=== PATIENT | male | born 1955 | race Hispanic/Latino ===

== ENCOUNTER 2024-03-15 11:32 | Emergency (ER) | payer MEDICARE ==
[2024-03-15 13:02] LABS: Bacteria/HPF None Seen HPF (None Seen); Bilirubin Negative (Negative); Blood, Urine Negative (Negative); CAUTI Indications for Culture Dysuria,urgency,freq; Clarity Clear (Clear); Glucose, Urine (Dipstick) Normal (Negative); Ketone, Urine Negative (Negative); Leukocyte Negative Leu/uL (Negative); Nitrite Negative (Negative); Protein, Urine (Dipstick) 30 mg/dL (Neg-Trace); RBC/HPF None Seen HPF (0-3); Specific Gravity, Urine 1.014 (1.002-1.036); Squamous Epithelial 0-3 HPF (0-3); Urobilinogen Normal mg/dL (Less than 2); WBC/HPF None Seen HPF (0-3)
[2024-03-15 13:04] LABS: Urine Culture Reflex No No
[2024-03-15 13:24] LABS: #Basophils 0.09 10x3/uL (0.0-0.2); %Basophils 0.9 % (0.0-1.0); %Lymphocytes 24.3 % (21.0-51.0); %Neutrophils 62.4 % (42.0-75.0); Hematocrit 48.5 % (42.0-52.0); Hemoglobin 16.9 g/dL (14.0-18.0); Mean Corpuscular HGB CONC 34.8 g/dL (32.0-36.0); Mean Corpuscular Hemoglobin 32.5 pg (27.0-31.0); Mean Corpuscular Volume 93.3 fL (78.0-98.0); Mean Platelet Volume 10.7 fL (7.4-10.4); Platelet Count 229 10x3/uL (130-400); RBC Distribution Width 12.1 % (11.5-14.5)
[2024-03-15 13:41] LABS: ALT (SGPT) 64 U/L (8-55); AST (SGOT) 68 U/L (5-34); Albumin 3.8 g/dL (3.4-4.8); Alkaline Phosphatase 109 U/L (40-110); Anion Gap 15 mmol/L (10-20); BUN (Urea Nitrogen) 8 mg/dL (8.4-25.7); Bilirubin, Total 2.2 mg/dL (0.2-1.2); Calc. Creatinine Clearance 0 mL/min (70-130); Calcium 9.4 mg/dL (7.8-10.44); Carbon Dioxide 23 mmol/L (23-31); Chloride 104 mmol/L (98-107); Estimated GFR 94; Glucose 167 mg/dL (80-115); Potassium 4.3 mmol/L (3.5-5.1); Protein, Total 7.8 g/dL (5.8-8.1); Sodium 138 mmol/L (136-145); Uric Acid 6.9 mg/dL (3.5-7.2)
[2024-03-15] MEDS ORDERED: Ibuprofen 200 MG TAB ONE (14:03)
[2024-03-15] MEDS ORDERED: predniSONE 20 MG TAB ONE ×2 (14:03)
[2024-03-15] MEDS ORDERED: Colchicine 0.6 MG TAB PO SCH (14:15)
== END 2024-03-15 14:09 | disposition home or self-care (01) ==
LOC: ERS 11:32
DX: M10.9 Gout, unspecified (principal); M79.89 Other specified soft tissue disorders; M79.674 Pain in right toe(s)
CPT/HCPCS: 36415; 80053; 81001; 84550; 85025; J7512